=== PATIENT | female | born 1990 | race Caucasian/White ===

== ENCOUNTER 2016-12-21 08:10 | Day surgery (SDC) | payer BC ==
[~2016-12-21 08:10] MED LIST: Lactated Ringers 1,000 ML IV SCH; Lidocaine 1% 4 ML ONE; Lidocaine 1%/Sod Bicarbonate in NS 8.4% 1 ML Syringe IV PRN; Midazolam 1 MG/ML 2 ML SDV ONE; Ondansetron 4 MG/2 ML SDV ONE; Propofol 200 MG/20 ML SDV ONE; Sodium Chloride 0.9% 10 ML Syringe FLUSH PRN; fentaNYL 250 MCG/5 ML SDV ONE
[2016-12-21] MEDS ORDERED: ceFAZolin 1 GM Vial ONE (08:24)
--- NOTE | 2016-12-21 08:31 | PCM.PREANE ---
Preanesthetic Assessment - Anesthesia/Transfusion/Family Hx Anesthesia History: Prior Anesthesia Reaction (nausea) Transfusion History: No Prior Transfusion(s) - Review of Systems General: No Symptoms Pulmonary: No Symptoms Cardiovascular: No Symptoms, Palpitations (during 9 months ago) Gastrointestinal: No symptoms, Abdominal pain (bowel issues all the time) Neurological: No Symptoms Other: Reports: Anxiety - Physical Assessment NPO Status Date: 12/20/16 NPO Status Time: 21:00 Pulse: 79 O2 Sat by Pulse Oximetry: 99 Respiratory Rate: 16 Blood Pressure: 120/72 Temperature: 96.6 F Height: 5 ft 10 in Weight: 66.366 kg ASA Class: 1 Mental Status: Alert & Oriented x3 Airway Class: Mallampati = 1 Dentition: Reports: Normal Dentition Thyro-Mental Finger Breadths: 3 Mouth Opening Finger Breadths: 3 ROM/Head Extension: Full Lungs: Clear to auscultation, Normal respiratory effort Cardiovascular: Regular Rate, Regular Rhythm, No Murmurs - Lab Values: 12/20/16 Hgb 14.6 Plt 275 Lytes WNL BUN 4 Cr 0.6 - Allergies Allergies/Adverse Reactions: Allergies Allergy/AdvReac Type Severity Reaction Status Date / Time No Known Allergies Allergy Verified 12/20/16 15:52 - Blood Blood Available: Yes - Acknowledgements Anesthesia Type Planned: General Anesthesia Pt an Appropriate Candidate for the Planned Anesthesia: Yes Alternatives and Risks of Anesthesia Discussed w Pt/Guardian: Yes Pt/Guardian Understands and Agrees with Anesthesia Plan: Yes PreAnesthesia Questionnaire HEENT History: Reports: Allergic rhinitis, Impaired vision Cardiovascular History: Reports: Other (see below) Other Cardiovascular History: palpitations Respiratory History: Reports: None Gastrointestinal History: Reports: GERD (prn- mostly with ) Genitourinary History: Reports: None KILN FEEDER History: Reports: Other OB/BYN History: ASCUS, HPV, CINIII, irregular menses, oligahydraminos Musculoskeletal History: Reports: None Neurological History: Reports: Other (see below) Other Neuro History: dizziness Psychiatric History: Reports: None Endocrine/Metabolic History: Reports: None Hematologic History: Reports: Anemia Other Hematologic History: related anemia Immunologic History: Reports: None Oncologic (Cancer) History: Reports: None Dermatologic History: Reports: None - Past Surgical History Head Surgeries/Procedures: Reports: None HEENT Surgical History: Reports: Oral surgery GI Surgical History: Reports: Cholecystectomy Musculoskeletal Surgical History: Reports: Other (see below) Other Musculoskeletal Surgeries/Procedures:: foot surgery in childhood - SUBSTANCE USE Smoking Status *Q: Never Smoker Tobacco Use Within Last Twelve Months: No Second Hand Smoke Exposure: No Days Per Week of Alcohol Use: 0 Recreational Drug Use History: No - HOME MEDS Home Medications: Home Meds Norethindrone-E.estradiol-Iron [Dee Fe 1.5-30 Tablet] 1 tab PO DAILY 12/20/16 [History] - CURRENT (IN HOUSE) MEDS Current Meds: Current Medications Lactated Ringer's (Ringers, Lactated) 1,000 mls @ 125 mls/hr IV ASDIRECTED LUIS Stop: 12/21/16 23:59 Lidocaine/Sodium Bicarbonate (Buffered Lidocaine 1% In Ns 8.4%) 0.25 ml IV ONETIME PRN PRN Reason: Prior to IV Start Stop: 12/21/16 23:59 Sodium Chloride (Saline Flush) 10 ml FLUSH ASDIRECTED PRN PRN Reason: Keep Vein Open Stop: 12/21/16 23:59 Discontinued Medications Cefazolin Sodium (Ancef) Confirm Administered Dose 2 gm .ROUTE .STK-MED ONE Stop: 12/21/16 08:25 Fentanyl (Sublimaze) Confirm Administered Dose 250 mcg .ROUTE .STK-MED ONE Stop: 12/21/16 07:52 Lidocaine HCl (Xylocaine-Mpf 1%) Confirm Administered Dose 4 mls @ as directed .ROUTE .STK-MED ONE Stop: 12/21/16 07:51 Midazolam HCl (Versed 1 Mg/Ml) Confirm Administered Dose 2 mg .ROUTE .STK-MED ONE Stop: 12/21/16 07:52 Ondansetron HCl (Zofran) Confirm Administered Dose 4 mg .ROUTE .STK-MED ONE Stop: 12/21/16 07:51 Propofol (Diprivan 20 Ml) Confirm Administered Dose 200 mg .ROUTE .STK-MED ONE Stop: 12/21/16 07:51
[2016-12-21] MEDS ORDERED: Sodium Chloride 0.9% 50 ML SDV ONE (08:34)
[2016-12-21] MEDS ORDERED: Lidocaine 1% with EPINEPHrine 1:100,000 20 ML MDV ONE (08:34)
[2016-12-21] MEDS ORDERED: Scopolamine 1.5 MG Transdermal Patch TRDERM ONE (08:45)
[2016-12-21] MEDS ORDERED: Propofol 200 MG/20 ML SDV ONE (09:01)
[2016-12-21] MEDS ORDERED: Dexamethasone 4 MG/ML SDV ONE (09:05)
[2016-12-21] MEDS ORDERED: HYDROmorphone 1 MG/ML Syringe IVPUSH PRN (09:15)
[2016-12-21] MEDS ORDERED: fentaNYL 100 MCG/2 ML SDV IVPUSH PRN (09:15)
[2016-12-21] MEDS ORDERED: Meperidine PF 50 MG/ML Syringe IVPUSH PRN (09:15)
[2016-12-21] MEDS ORDERED: Ondansetron 4 MG/2 ML SDV IVPUSH PRN (09:15)
[2016-12-21] MEDS ORDERED: Ketorolac 30 MG/ML SDV ONE (09:42)
--- NOTE | 2016-12-21 09:48 | PCM.OPNOTE ---
- General Post-Op/Procedure Note Date of Surgery/Procedure: 12/21/16 Operative Procedure(s): Dilatation and curettage, and conization of [place] cervix. [id number] Pre Op Diagnosis: KAYLA 3, ASCUS Pap smear with HPV high risk positive Post-Op Diagnosis: Same Anesthesia Technique: General ET tube Primary Surgeon: Sebas Mahoney Secondary Surgeon: Anthony Mallory Anesthesia Provider: Shona Kay Fluid Replacement, Intraop: 800 EBL in mLs: 20 Drain/Tube Comments:: None Complications: None Condition: Good Free Text/Narrative:: Patient was transported to operating room #3, and placed under general anesthesia with endotracheal intubation in the low dorsal lithotomy position. Prepared and draped in sterile fashion. SCDs in place and functioning. Ancef 2 g given at prior to the surgery. The patient. Timeout performed confirming name, date of , and procedure as, D&C, and conization of the cervix. The cervix was grasped, injected with roughly 15 mL of 0.25% lidocaine with epinephrine in multiple confluent areas of #1 Vicryl sutures placed at 3 and 9: 00 to help with hemostasis. Lugol staining of the cervix revealed no extensive areas of nonstaining, and the conization was performed, trying to attempt, a shallow conization because. Patient desires future pregnancies. Circumscribing , and removing the ectocervix. The squamocolumnar junction, and tacked Marcaine 12:00 with 2-0 Vicryl suture. Curettage of endocervix and endometrium. Performed. Hemostasis was obtained with electrocautery and Monsel solution. Uterus sounded to 7 cm the anchor sutures at 3 and 9:00 were tied together to allow. Additional hemostasis. No blood transfusions, required. Patient transported post anesthesia care unit in satisfactory condition
--- NOTE | 2016-12-21 09:53 | PCM.POSTAN ---
POST ANESTHESIA ASSESSMENT - MENTAL STATUS Mental Status: somnolent - VITAL SIGNS Pulse Rate: 73 SaO2: 100 Resp Rate: 10 Blood Pressure: 107/58 Temperature: 99.1 F - RESPIRATORY Respiratory Status: respiratory rate WNL, airway patent, O2 saturation stable, supplemental oxygen - CARDIOVASCULAR CV Status: pulse rate WNL, blood pressure stable - GASTROINTESTINAL GI Status: no symptoms - PAIN Pain Score: 0 - POST OP HYDRATION Hydration Status: adequate & stable
[2016-12-21] MEDS ORDERED: Acetaminophen/oxyCODONE 325-5 MG Tab PO PRN (10:14)
--- NOTE | 2016-12-21 11:15 | PCM48HPAN ---
Post Anesthesia Note - EVALUATION WITHIN 48HRS OF ANESTHETIC Vital Signs in Normal Range: Yes Patient Participated in Evaluation: Yes Respiratory Function Stable: Yes Airway Patent: Yes Cardiovascular Function Stable: Yes Hydration Status Stable: Yes Pain Control Satisfactory: Yes Nausea and Vomiting Control Satisfactory: Yes (no nausea.) Mental Status Recovered: Yes
[2016-12-21 11:41] VITALS: BP 110/62
== END 2016-12-21 11:50 | disposition home or self-care (01) ==
LOC: JD.SDS 08:10
PROVIDERS: ATTEND Obstetrics & Gynecology
DX: N87.1 Moderate cervical dysplasia (principal); N72 Inflammatory disease of cervix uteri; J30.2 Other seasonal allergic rhinitis; Z79.899 Other long term (current) drug therapy; Z98.890 Other specified postprocedural states
CPT/HCPCS: 57520; 88305; 88307; A9270; J0690; J1100; J1885; J2250; J2405; J3010; J7120; 00940; J2704

== ENCOUNTER 2022-02-12 23:04 | Inpatient (IN) | payer MEDICAID ==
[2022-02-12] MEDS ORDERED: Lidocaine 1% 50 ML MDV INJECT ONE (23:12)
[2022-02-12] MEDS ORDERED: Nalbuphine HCl 10 MG/ 1ML Amp IVPUSH PRN (23:12)
[2022-02-12] MEDS ORDERED: Calcium Carbonate 500 MG Tab.Chew PO PRN (23:12)
[2022-02-12] MEDS ORDERED: Sodium Chloride 0.9% 10 ML Syringe FLUSH PRN (23:12)
[2022-02-12] MEDS ORDERED: Ondansetron 4 MG/2 ML SDV IVPUSH PRN (23:12)
[2022-02-12] MEDS ORDERED: Oxytocin/Lactated Ringers 10 UNIT/1,000 ML BAG IV SCH (23:15)
[2022-02-12] MEDS ORDERED: Lactated Ringers 1,000 ML IV SCH (23:15)
[2022-02-13] MEDS ORDERED: Misoprostol 200 MCG Tab PO STA (00:15)
[2022-02-13] MEDS ORDERED: Misoprostol 100 MCG Tab PO ONE (01:53)
[2022-02-13] MEDS ORDERED: Benzocaine/Menthol 20%-0.5% Spray 78 GM Cannister TOP PRN ×2 (01:55→04:50)
[2022-02-13] MEDS ORDERED: Witch Hazel Medicated Pads 40/Jar TOP PRN ×2 (01:55→04:50)
[2022-02-13] MEDS ORDERED: Methylergonovine 0.2 MG/1 ML Amp IM ONE (02:44)
[2022-02-13] MEDS: Ibuprofen 600 MG Tab PO PRN ×3 (03:08→19:54)
[2022-02-13] MEDS ORDERED: Acetaminophen 325 MG Tab PO PRN (04:50)
[2022-02-13] MEDS ORDERED: Sodium Chloride 0.9% 10 ML Syringe FLUSH SCH (09:00)
[2022-02-13] MEDS ORDERED: Misoprostol 200 MCG Tab PO SCH (09:00)
[2022-02-14] MEDS: Ibuprofen 600 MG Tab PO PRN (05:58)
[2022-02-14 12:50] VITALS: BP 106/79; PULSE 79
== END 2022-02-14 12:25 | disposition home or self-care (01) | DRG 807 ==
LOC: JD.OBCHECK 23:04 → JD.OB 23:05 → OBSVTOIN 02-13 00:06
PROVIDERS: ADMIT Obstetrics & Gynecology; ATTEND Obstetrics & Gynecology
PROC: 10E0XZZ Delivery of Products of Conception, External Approach (ICD-10-PCS; principal; 2022-02-13)
PROC: 0HQ9XZZ Repair Perineum Skin, External Approach (ICD-10-PCS; 2022-02-13)
PROC: 10907ZC Drainage of Amniotic Fluid, Therapeutic from Products of Conception, Via Natural or Artificial Opening (ICD-10-PCS; 2022-02-13)
PROC: 3E0P7VZ Introduction of Hormone into Female Reproductive, Via Natural or Artificial Opening (ICD-10-PCS; 2022-02-13)
DX: O70.0 First degree perineal laceration during delivery (principal); Z37.0 Single live birth; Z3A.39 39 weeks gestation of pregnancy
CPT/HCPCS: 36415; 59025; 59409; 85025; 86592; A9270-GY; J2001; J2210; J2405; J2590; J7120